=== PATIENT | female | born 1965 | race Caucasian/White ===

== ENCOUNTER 2017-01-23 04:09 | Emergency (ER) | payer SELFPAY ==
[~2017-01-23] VITALS: Ht 170.2 cm; Wt 71.3 kg
[~2017-01-23 04:09] MED LIST: ATOR40TA49 PO; GEMF600T PO; LISI20 PO; MAG-LIQ PO; METO25 PO; NIFE1TAB86 PO; PROC1TAB8 PO; PROT40TA PO
[2017-01-23 04:15] VITALS: BP 157/107; PULSE 107; RESP 18; TEMP 98.2; O2SAT 98
[2017-01-23] MEDS ORDERED: TETANUS/DIPHTHERIA TOXOID ADULT 0.5 ML VIAL IM ONE (05:15)
[2017-01-23] MEDS ORDERED: LIDOCAINE 1%/EPINEPHrine 1:100,000 SOLN 20 ML VIAL INFIL ONE (05:30)
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
[2017-01-23] MEDS ORDERED: oxyCODONE/ACETAMINOPHEN 5 MG/325 MG TAB PO ONE (06:30)
[2017-01-23] MEDS ORDERED: IBUP-232 PO (06:34)
[2017-01-23] MEDS ORDERED: PERC5TAB12 PO (06:34)
[2017-01-23 06:53] VITALS: BP 127/84
== END 2017-01-23 07:01 | disposition home or self-care (01) ==
LOC: PHED 04:09
DX: S01.01XA Laceration without foreign body of scalp, initial encounter (principal); S09.90XA Unspecified injury of head, initial encounter; S06.0X0A Concussion without loss of consciousness, initial encounter; Z23 Encounter for immunization; E78.00 Pure hypercholesterolemia, unspecified; I10 Essential (primary) hypertension; F17.210 Nicotine dependence, cigarettes, uncomplicated; Y04.2XXA Assault by strike against or bumped into by another person, initial encounter; Y93.9 Activity, unspecified
CPT/HCPCS: 12004; 70450; 71010; 72125; 90471; 90714